=== PATIENT | male | born 1970 | race American Indian/Alaskan Native ===

== ENCOUNTER 2018-10-10 18:49 | Emergency (ER) | payer OTHER ==
--- NOTE | 2018-10-10 19:15 | Emergency Department Report ---
Blank Doc - Documentation Documentation: This is a 48-year-old male that presents with generalized body aches. Stated has some "upset stomach". Stated wakes up with foul taste in mouth This initial assessment/diagnostic orders/clinical plan/treatment(s) is/are subject to change based on patient's health status, clinical progression and re- assessment by fellow clinical providers in the ED. Further treatment and workup at subsequent clinical providers discretion. Patient/guardians urged not to elope from the ED as their condition may be serious if not clinically assessed and managed. Initial orders include: 1- Patient sent to [facility] for further evaluation and treatment 2- labs 3- UA
[2018-10-10 19:57] LABS: Basophils % (Auto) 0.5 % (0.0-1.8); Eosinophils # (Auto) 0.1 K/mm3 (0.0-0.4); Eosinophils % (Auto) 1.3 % (0.0-4.3); Hematocrit 42.9 % (35.5-45.6); Mean Corpuscular HGB Conc 33 % (32-34); Mean Corpuscular Volume 75 fl (84-94); Monocytes # (Auto) 0.4 K/mm3 (0.0-0.8); Platelet Count 204 K/mm3 (140-440); Red Cell Distribution Width 15.8 % (13.2-15.2)
[2018-10-10 20:24] LABS: Alanine Aminotransferase 20 units/L (7-56); Albumin 4.5 g/dL (3.9-5); BUN/Creatinine Ratio 9; Blood Urea Nitrogen 8 mg/dL (9-20); Calcium 9.4 mg/dL (8.4-10.2); Hemolysis Index 11
[2018-10-10 20:38] LABS: Bilirubin,Direct < 0.2 mg/dL (0-0.2)
[2018-10-10 22:37] LABS: Bilirubin,Urine NEG (Negative); Blood,Urine NEG (Negative); Color,Urine Colorless (Yellow); Protein,Urine <15 mg/dL mg/dL (Negative); Urobilinogen,Urine < 2.0 mg/dL (<2.0); WBC,Urine < 1.0 /HPF (0.0-6.0)
[2018-10-10 23:00] LABS: RBC,Urine < 1.0 /HPF (0.0-6.0)
--- NOTE | 2018-10-10 23:06 | Emergency Department Report ---
ED General Adult HPI - General Chief complaint: Pain General Stated complaint: BODY PAIN/ACHE/DRY MOUTH/ABD PAIN Time Seen by Provider: 10/10/18 19:14 Source: patient Mode of arrival: Ambulatory Limitations: No Limitations - History of Present Illness Initial comments: 48 0 male presents to the emergency room for body aches 3-4 days. Patient reports that the pain are located in the arms head that are intermittent comes and goes in different places he wakes up with different areas that are hot he does admit to changing his diet. 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 Patient denies any fever or chills. 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 Patient does have a past medical history of anxiety and is currently on clonazepam twice a day and Wellbutrin once a day. He has a primary care provider in [place] he has scheduled an appointment at [facility] with Dr. Bone October 22. Patient has taken nothing for his pain today. One dose of Tylenol 500 mg on Monday morning. Patient denies any runny nose nasal congestion and sneezing. Patient reports he thinks he may have a sinus infection. Patient is also wanted to check for diabetes. -: days(s) (3-4) Location: head, eyes, chest, abdomen, left, right, upper extremity, lower extremity Radiation: non-radiation Severity scale (0 -10): 4 Quality: aching Consistency: intermittent Improves with: none Worsens with: none Associated Symptoms: denies: cough, fever/chills, loss of appetite, nausea/vomiting, rash, shortness of breath, syncope, weakness - Related Data Previous Rx's Medication Instructions Recorded Last Taken Type Amoxicillin [Amoxicillin TAB] 875 mg PO BID #14 tablet 09/23/14 Unknown Rx Butalb/Acetamin/Caff 50-325-40 1 each PO Q4H PRN #14 tablet 09/23/14 Unknown Rx [Fioricet] Allergies Allergy/AdvReac Type Severity Reaction Status Date / Time guaifenesin [From Mucinex] Allergy Unknown Verified 10/10/18 18:54 ED Review of Systems ROS: Stated complaint: BODY PAIN/ACHE/DRY MOUTH/ABD PAIN Other details as noted in HPI Comment: All other systems reviewed and negative ED Past Medical Hx - Past Medical History Previous Medical History?: Yes Hx Diabetes: Yes ("borderline.") - Surgical History Past Surgical History?: Yes Additional Surgical History: chest skin graft - Social History Smoking Status: Never Smoker Substance Use Type: None - Medications Home Medications: Home Medications Medication Instructions Recorded Confirmed Last Taken Type Amoxicillin [Amoxicillin TAB] 875 mg PO BID #14 tablet 09/23/14 Unknown Rx Butalb/Acetamin/Caff 50-325-40 1 each PO Q4H PRN #14 tablet 09/23/14 Unknown Rx [Fioricet] ED Physical Exam - General Limitations: No Limitations General appearance: alert, in no apparent distress - Head Head exam: Present: atraumatic, normocephalic - Eye Eye exam: Present: normal appearance - ENT ENT exam: Present: mucous membranes moist - Neck Neck exam: Present: tenderness, full ROM - Respiratory Respiratory exam: Present: normal lung sounds bilaterally. Absent: respiratory distress - Cardiovascular Cardiovascular Exam: Present: regular rate, normal rhythm. Absent: systolic murmur, diastolic murmur, rubs, gallop - GI/Abdominal GI/Abdominal exam: Present: soft, normal bowel sounds - Rectal Rectal exam: Present: deferred - Extremities Exam Extremities exam: Present: normal inspection - Back Exam Back exam: Present: normal inspection - Neurological Exam Neurological exam: Present: alert, oriented X3 - Psychiatric Psychiatric exam: Present: normal affect, normal mood - Skin Skin exam: Present: warm, dry, intact, normal color. Absent: rash ED Course Vital Signs 10/10/18 19:15 Temperature 98.8 F Pulse Rate 70 Respiratory 16 Rate Blood Pressure 131/90 O2 Sat by Pulse 100 Oximetry ED Medical Decision Making - Lab Data Result diagrams: 10/10/18 19:24 10/10/18 19:24 - Medical Decision Making Patient has been evaluated by this provider and a CBC. Patient was given ibuprofen 600 mg for pain management. Patient is nontoxic with no acute distress. Discussed the patient that he should try [id number] antihistamines such as Zyrtec's, Claritin, Courtney and nasal spray of Flonase as well as Zaditor for itchy eyes. Discussed patient to keep his appointment with Dr. Bone on October 22 of [facility]. Also discussed the patient he can take ibuprofen for body aches and increase his water intake. Patient verbalized understanding Critical care attestation.: If time is entered above; I have spent that time in minutes in the direct care of this critically ill patient, excluding procedure time. ED Disposition Clinical Impression: Generalized body aches Allergic rhinitis Qualifiers: Allergic rhinitis trigger: unspecified Allergic rhinitis seasonality: seasonal Qualified Code(s): J30.2 - Other seasonal allergic rhinitis Disposition: - TO HOME OR SELFCARE Is pt being admited?: No Does the pt Need Aspirin: No Condition: Stable Instructions: Allergic Rhinitis (ED), Analgesic/Antihistamine/Antitussive/Decongestant (By mouth) Additional Instructions: Please increase her water intake. Continue with your antianxiety medications. Try [id number] either Zyrtec's, Claritin or Courtney as well as Flonase or Nasacort and Zaditor for eyedrops. He can take ibuprofen 600-800 mg 3 times a day. Keep your appointment with [facility] for [address] Bone. Referrals: AMRIK PINARUMNEY MD OSIEL [Primary Care Provider] - 3-5 Days Forms: Accompanied Note, Work/School Release Form(ED)
[2018-10-10] MEDS ORDERED: IBUPROFEN PO ONE (23:07)
[2018-10-10 23:24] VITALS: BP 125/86
== END 2018-10-10 23:26 | disposition home or self-care (01) ==
LOC: ED 18:49
DX: J00 Acute nasopharyngitis [common cold] (principal); J30.9 Allergic rhinitis, unspecified; E11.9 Type 2 diabetes mellitus without complications; Z88.3 Allergy status to other anti-infective agents
CPT/HCPCS: 36415; 80048; 80076; 81001; 85025